=== PATIENT | male | born 1945 | race Caucasian/White ===

== ENCOUNTER → 2019-08-06 | Outpatient (CLI) | payer MEDICARE | END | disposition home or self-care (01) | LOC: CFH 14:49 | PROVIDERS: ATTEND Internal Medicine | DX: R91.1 Solitary pulmonary nodule (principal); G47.33 Obstructive sleep apnea (adult) (pediatric); I10 Essential (primary) hypertension; Z68.33 Body mass index [BMI] 33.0-33.9, adult; Z87.891 Personal history of nicotine dependence; Z88.1 Allergy status to other antibiotic agents; Z88.8 Allergy status to other drugs, medicaments and biological substances; Z79.899 Other long term (current) drug therapy | CPT/HCPCS: 71250 ==

== ENCOUNTER 2020-07-01 11:16 | Emergency (ER) | payer MEDICARE ==
[~2020-07-01] VITALS: Ht 188 cm; Wt 121.0 kg
--- NOTE | 2020-07-01 11:43 | NUR ---
SRINIVASAN DICKEY AT BEDSIDE. PT [facility] 2 WEEKS AGO, ABOUT 4 DAYS AGO BEGAN HAVING PAIN POSTERIOR RIGHT LBP RADIATES DOWN BACK OF RIGHT LEG. DENIES ANY BOWEL OR BLADDER ISSUES, NO NUMBNESS OR TINGLING IN GROIN REGION
--- NOTE | 2020-07-01 11:48 | NUR ---
SRINIVASAN DICKEY AT BEDSIDE ASSESSMENT REVIEWED AND POC DISCUSSED. QUESTIONS ANSWERED.
[2020-07-01] MEDS ORDERED: DIAZEPAM 5 MG TABLET PO ONE (12:00)
[2020-07-01] MEDS ORDERED: KETOROLAC 30 MG/1 ML IM ONE (12:00)
[2020-07-01] MEDS ORDERED: DIAZEPAM 5 MG TABLET ONE (12:16)
[2020-07-01] MEDS ORDERED: KETOROLAC 30 MG/1 ML ONE (12:16)
--- NOTE | 2020-07-01 12:21 | NUR ---
PT MED NOTED FOR PAIN, 3/10 AT REST. PAIN CAN BE 10/10 WITH ACTIVITY
--- NOTE | 2020-07-01 12:45 | NUR ---
PT OOB AND AMBULATES WITH STEAD GAIT. RPTS THAT PAIN AND MOVEMENT IS IMPROVED. PROVIDER NOTIFIED.
[2020-07-01 12:48] VITALS: BP 137/78
--- NOTE | 2020-07-01 13:11 | NUR ---
Patient/Caregiver given discharge instructions and they have confirmed that they understand the instructions. Patient ambulatory with steady gait.
== END 2020-07-01 13:37 | disposition home or self-care (01) ==
LOC: ED 13:17
DX: S39.012A Strain of muscle, fascia and tendon of lower back, initial encounter (principal); I10 Essential (primary) hypertension; W01.0XXA Fall on same level from slipping, tripping and stumbling without subsequent striking against object, initial encounter; Y93.89 Activity, other specified; Y92.89 Other specified places as the place of occurrence of the external cause; Y99.8 Other external cause status
CPT/HCPCS: 96372; 99283; J1885